=== PATIENT | male | born 1975 | race African-American/Black ===

== ENCOUNTER 2019-04-21 10:04 | Emergency (ER) | payer MEDICAID ==
[~2019-04-21] VITALS: Ht 188 cm; Wt 88.5 kg
--- NOTE | 2019-04-21 10:14 | NUR ---
ED Nurse Note: Pt has been coughing x 3 days, stated " I just need Z-Berny". Has hx of COPD. Pt SAT 97% RA. AOx4, VSS. Will cont to monitor.
[2019-04-21] MEDS ORDERED: Albuterol ud Inhalation HHN ONE (10:15)
[2019-04-21 10:45] VITALS: BP 131/74
--- NOTE | 2019-04-21 11:33 | Emergency Room Report ---
History of Present Illness General Chief Complaint: Upper Respiratory Illness Source: Patient Present Illness HPI This patient states has a history of chronic bronchitis. He states that typically he develops a severe respiratory infection with all of his onychitis episodes. He states about 3 days ago he developed coughing and congestion and he feels that the infection is in his chest. He does not usually use inhalers and does not have a diagnosis of asthma. He has no chest pain. He denies fever or chills. He denies nausea or vomiting. He has no other complaints. Allergies: Coded Allergies: ASPIRIN (Verified Allergy, Unknown, 04/21/19) Patient History Past Medical History: see triage record, other - Recurrent bronchitis Social History: Denies: smoking, alcohol use, drug use Reviewed Nursing Documentation: PMH: Agreed; PSxH: Agreed Nursing Documentation-PMH Past Medical History: No History, Except For Review of Systems All Other Systems: negative except mentioned in HPI Physical Exam Vital Signs Date Time Temp Pulse Resp B/P (MAP) Pulse Ox O2 Delivery O2 Flow Rate FiO2 04/21/19 10:08 98.1 99 18 136/78 (97) 97 Room Air 04/21/19 10:42 21 Sp02 EP Interpretation: reviewed, normal General Appearance: no apparent distress, alert, GCS 15, non-toxic Head: normocephalic, atraumatic Eyes: bilateral eye normal inspection, bilateral eye PERRL ENT: hearing grossly normal, normal pharynx, no angioedema, normal voice Neck: full range of motion, supple/symm/no masses Respiratory: chest non-tender, lungs clear, normal breath sounds, no respiratory distress, no retraction, no accessory muscle use, speaking full sentences Cardiovascular #1: regular rate, rhythm, no edema Rectal: deferred Musculoskeletal: back normal, gait/station normal, normal range of motion, non- tender Neurologic: alert, oriented x3, responsive, motor strength/tone normal, sensory intact, speech normal Psychiatric: judgement/insight normal, memory normal, mood/affect normal, no suicidal/homicidal ideation Skin: normal color, no rash, warm/dry, well hydrated Medical Decision Making Diagnostic Impression: Primary Impression: Bronchitis ER Course This patient has a clinical presentation with bronchitis. The evaluation was very reassuring with a normal lung exam, no respiratory distress, normal pulse oximetry. I am not concerned for pneumonia in this patient. This patient states that he develops pneumonia with respiratory infections and is requesting azithromycin. Overall, the patient is nontoxic well-appearing with a normal lung exam. No emergency medical condition was identified. Patient's given close return precautions and follow-up instructions. Chest X-Ray Diagnostic Results Chest X-Ray Diagnostic Results : Chest X-Ray Ordered: Yes # of Views/Limited/Complete: 1 View Indication: Other - cough EP Interpretation: Yes Interpretation: no consolidation, no effusion, no pneumothorax, no acute cardiopulmonary disease Impression: No acute disease Electronically Signed by: Jacqui Ponce DO Other X-Ray Diagnostic Results Other X-Ray Diagnostic Results : Indication: Other - cough Last Vital Signs Date Time Temp Pulse Resp B/P (MAP) Pulse Ox O2 Delivery O2 Flow Rate FiO2 04/21/19 11:01 97 18 98 Room Air 21 04/21/19 10:45 98.1 131/74 Status: improved Disposition: HOME, SELF-CARE Condition: Improved Scripts No Active Prescriptions or Reported Meds Referrals: NON PHYSICIAN (PCP) Patient Instructions: Upper Respiratory Infection, Adult Jacqui Ponce DO Apr 21, 2019 11:33
[2019-04-21] MEDS ORDERED: ZITHROMAX250 MG ORAL (11:34)
[2019-04-21 11:38] VITALS: BP 131/74
--- NOTE | 2019-04-21 11:38 | NUR ---
ER DISCHARGE NOTE: Patient is cleared to be discharged per ERMD, pt is aox4, on room air, with stable vital signs. pt was given dc and prescription instructions, pt was able to verbalize understanding, pt id band removed. pt is able to ambulate with steady gait. pt took all belongings.
--- NOTE | 2019-04-21 15:40 | Diagnostic Imaging Report ---
Indication: Cough Technique: One view of the chest Comparison: 09/29/2005 Findings: Lungs and pleural spaces are clear. Heart size is normal. No significant interim change Impression: No acute process
== END 2019-04-21 11:38 | disposition home or self-care (01) ==
LOC: EMR 10:30
DX: J20.9 Acute bronchitis, unspecified (principal); Z88.6 Allergy status to analgesic agent
CPT/HCPCS: 71045; 94640; 94664; 99284